=== PATIENT | female | born 1980 | race Two or more races ===

== ENCOUNTER 2018-10-22 | Emergency (ER) | payer MEDICAID, OTHER ==
[~2018-10-22] VITALS: Ht 160 cm; Wt 93.0 kg
[2018-10-22 00:20] VITALS: BP 103/70
[2018-10-22] MEDS ORDERED: PREN-96 PO (00:53)
[2018-10-22] MEDS ORDERED: FOLI1TAB6 PO (00:53)
[2018-10-22] MEDS ORDERED: INSREG3 IV (00:53)
[2018-10-22] MEDS ORDERED: LEVEMIR SC ×2 (00:53)
[2018-10-22] MEDS ORDERED: DOCU-94 PO (00:53)
== END 2018-10-22 02:58 | disposition left against medical advice (07) ==
LOC: ER 00:06 → UNDOADMOB 00:21 → LDRP 00:21 → ER 02:58
DX: R51 Headache (principal); Z53.21 Procedure and treatment not carried out due to patient leaving prior to being seen by health care provider
CPT/HCPCS: 82962

== ENCOUNTER 2018-10-22 00:21 | Observation (INO) | payer MEDICAID, OTHER ==
[~2018-10-22] VITALS: Ht 160 cm; Wt 93.0 kg
[2018-10-22] MEDS ORDERED: LEVEMIR SC ×2 (00:53)
[2018-10-22] MEDS ORDERED: INSREG3 IV (00:53)
[2018-10-22] MEDS ORDERED: DOCU-94 PO (00:53)
[2018-10-22] MEDS ORDERED: FOLI1TAB6 PO (00:53)
[2018-10-22] MEDS ORDERED: PREN-96 PO (00:53)
[2018-10-22] MEDS ORDERED: ACETAMINOPHEN 325 MG TAB PO ONE (01:30)
== END 2018-10-22 03:03 | disposition home or self-care (01) | DRG 566 ==
LOC: LDRP 00:21
PROVIDERS: ADMIT Specialist; ATTEND Specialist
DX: O24.112 Pre-existing type 2 diabetes mellitus, in pregnancy, second trimester (principal); O26.892 Other specified pregnancy related conditions, second trimester; M54.2 Cervicalgia; O09.522 Supervision of elderly multigravida, second trimester; R42 Dizziness and giddiness; R51 Headache; Z3A.25 25 weeks gestation of pregnancy
CPT/HCPCS: 59025; 81002; G0378

== ENCOUNTER 2019-06-16 01:33 | Emergency (ER) | payer MEDICAID ==
[~2019-06-16] VITALS: Ht 160 cm; Wt 90.7 kg
[~2019-06-16 01:33] MED LIST: DOCU-94 PO; FOLI1TAB6 PO; INSREG3 IV; LEVEMIR SC; PREN-96 PO
[2019-06-16 07:14] VITALS: BP 128/81
== END 2019-06-16 07:22 | disposition home or self-care (01) ==
LOC: ER 01:34
DX: J40 Bronchitis, not specified as acute or chronic (principal); E11.9 Type 2 diabetes mellitus without complications; Z90.49 Acquired absence of other specified parts of digestive tract
CPT/HCPCS: 71045

== ENCOUNTER 2020-04-09 14:19 | Emergency (ER) | payer MEDICAID ==
[~2020-04-09] VITALS: Ht 160 cm; Wt 81.2 kg
[2020-04-09 16:51] LABS: Urine Bacteria NONE SEEN /hpf (None Seen); Urine Blood 3+ /uL (Negative); Urine Budding Yeast MODERATE /hpf (None Seen); Urine Specific Gravity 1.035 (1.001-1.035); Urine WBC 14 /hpf (0 - 5)
[2020-04-09] MEDS ORDERED: METOCLOPRAMIDE HCL 5MG/ml INJ 2ml VIAL IV ONE (18:15)
[2020-04-09] MEDS ORDERED: FAMOTIDINE (10MG/ML) 2ML VL IV ONE (18:15)
[2020-04-09] MEDS ORDERED: SODIUM CHLORIDE 0.9% 1,000 ML IVB ONE (18:15)
[2020-04-09 18:49] VITALS: BP 116/70
[2020-04-09 18:53] LABS: Basophils # (auto) 0.1 10 ^3/uL (0-0.2); Basophils % (auto) 0.5 % (0.0-2.0); Eosinophils # (auto) 0.1 10 ^3/uL (0-0.8); Eosinophils % (auto) 0.6 % (0.0-7.0); Hematocrit 41.1 % (36.0-46.0); Hemoglobin 13.9 g/dL (12.2-16.2); Lymphocytes % (auto) 24.8 % (10.0-50.0); Mean Corpuscular Hemoglobin 29.7 pg (28.0-32.0); Mean Corpuscular Hgb Conc. 33.7 g/dL (32.0-36.0); Mean Corpuscular Volume 88.2 fL (80.0-100.0); Monocytes # (auto) 0.9 10 ^3/uL (0-1.3); Monocytes % (auto) 7.4 % (0.0-12.0); Neutrophils # (auto) 8.2 10 ^3/uL (1.6-8.6); Neutrophils % (auto) 66.7 % (37.0-80.0); Nucleated Red Blood Cells % 0.1 %; Platelet Count (auto) 212 10^3/uL (140-450); Red Blood Cells 4.66 10^6/uL (4.0-5.20); White Blood Cell 12.3 10^3/uL (4.4-10.8)
[2020-04-09 19:10] LABS: Albumin 3.1 g/dL (3.4-5.0); Potassium 3.4 mmol/L (3.5-5.1)
[2020-04-09 19:15] LABS: BUN/Creatinine Ratio 16.9; Bilirubin, Total 1.1 mg/dL (0.2-1.0); Total Protein 8.6 g/dL (6.4-8.2)
[2020-04-09] MEDS ORDERED: SODIUM CHLORIDE 0.9% 1,000 ML IV ONE (19:30)
== END 2020-04-09 20:29 | disposition home or self-care (01) ==
LOC: ER 14:19
DX: E11.43 Type 2 diabetes mellitus with diabetic autonomic (poly)neuropathy (principal); E11.65 Type 2 diabetes mellitus with hyperglycemia; K31.84 Gastroparesis; N83.292 Other ovarian cyst, left side; R16.0 Hepatomegaly, not elsewhere classified; R16.1 Splenomegaly, not elsewhere classified; E27.9 Disorder of adrenal gland, unspecified; Z91.018 Allergy to other foods; Z88.6 Allergy status to analgesic agent; Z88.8 Allergy status to other drugs, medicaments and biological substances; Z79.4 Long term (current) use of insulin; Z79.899 Other long term (current) drug therapy; Z90.49 Acquired absence of other specified parts of digestive tract; Z98.890 Other specified postprocedural states
CPT/HCPCS: 36415; 74176; 80053; 81001; 81025; 82962; 83690; 85025; 96361; 96374; 96375; 99284; J2765; J3490

== ENCOUNTER 2020-12-10 07:09 | Emergency (ER) | payer MEDICAID ==
[~2020-12-10] VITALS: Ht 160 cm; Wt 83.9 kg
[2020-12-10 07:46] LABS: Urine Bacteria FEW /hpf (None Seen); Urine Blood 3+ /uL (Negative); Urine Mucus FEW (None Seen); Urine Specific Gravity 1.034 (1.001-1.035); Urine WBC 272 /hpf (0 - 5)
[2020-12-10 07:48] LABS: Basophils # (auto) 0.1 10 ^3/uL (0-0.2); Basophils % (auto) 0.7 % (0.0-2.0); Eosinophils # (auto) 0.1 10 ^3/uL (0-0.8); Hematocrit 44.1 % (36.0-46.0); Hemoglobin 14.9 g/dL (12.2-16.2); Lymphocytes % (auto) 15.9 % (10.0-50.0); Mean Corpuscular Hemoglobin 29.6 pg (28.0-32.0); Mean Corpuscular Hgb Conc. 33.8 g/dL (32.0-36.0); Mean Corpuscular Volume 87.6 fL (80.0-100.0); Monocytes # (auto) 0.4 10 ^3/uL (0-1.3); Monocytes % (auto) 3.3 % (0.0-12.0); Neutrophils # (auto) 9.8 10 ^3/uL (1.6-8.6); Neutrophils % (auto) 79.1 % (37.0-80.0); Red Blood Cells 5.03 10^6/uL (4.0-5.20); Red Cell Distribution Width 13.2 % (11.8-14.3); White Blood Cell 12.4 10^3/uL (4.4-10.8)
[2020-12-10 08:00] LABS: Albumin 3.5 g/dL (3.4-5.0); Calcium 8.9 mg/dL (8.5-10.1); Potassium 3.3 mmol/L (3.5-5.1)
[2020-12-10 08:03] LABS: BUN/Creatinine Ratio 11.4; Bilirubin, Total 0.6 mg/dL (0.2-1.0); Total Protein 7.3 g/dL (6.4-8.2)
[2020-12-10 08:52] VITALS: BP 116/61
== END 2020-12-10 09:26 | disposition home or self-care (01) ==
LOC: ER 07:09
DX: N83.202 Unspecified ovarian cyst, left side (principal); N39.0 Urinary tract infection, site not specified; E11.9 Type 2 diabetes mellitus without complications; Z90.49 Acquired absence of other specified parts of digestive tract; Z79.4 Long term (current) use of insulin; Z79.899 Other long term (current) drug therapy; Z88.8 Allergy status to other drugs, medicaments and biological substances; Z91.018 Allergy to other foods
CPT/HCPCS: 36415; 74176; 80053; 81001; 82150; 85025

== ENCOUNTER 2025-02-03 12:19 | Inpatient (IN) | payer MEDICAID ==
[~2025-02-03] VITALS: Ht 160 cm; Wt 83.1 kg
[~2025-02-03 12:19] MED LIST changes: +FOLI-119 PO; -FOLI1TAB6 PO
--- NOTE | 2025-02-03 13:06 | ED.PDOC ---
History of Present Illness HPI Comments 44 y/o obese F presents with c/c of hyperglycemia and 3x day history of nonradiating, midsternal chest pain. Significant history for DM type I, HLD, and cholecystectomy. Patient was referred to the ED by her PCP after seeing her, yesterday, for chest pain and found with unexplained elevated blood glucose lev els. Pain is a 2/10 in severity and radiates to her back. Associated bilateral arm fatigue, nausea, polyuria, and polydipsia. No endorsed recent pertinent events or history, such as lifestyle or medication changes. Denies any vomiting, shortness of breath, polyphagia, diaphoresis, or further associated symptoms. Chief Complaint: Chest Pain Time Seen by MD: 12:40 Primary Care Provider: NONE Reviewed Notes: Nurses Notes, Medications, Allergies Allergies: Coded Allergies: Beef (Bovine) Protein (Verified Allergy, Unknown, 10/22/18) Ibuprofen (Verified Allergy, Unknown, 10/20/15) Insulin Glargine (Verified Allergy, Unknown, 10/22/18) Insulin Isophane (Verified Allergy, Unknown, 10/22/18) Ketorolac Tromethamine (Verified Allergy, Unknown, 10/20/15) Metformin (Verified Allergy, Unknown, 10/22/18) NSAIDs (Verified Allergy, Unknown, 10/20/15) Home Meds Reported Medications Docusate Sodium (Colace) 100 Mg Cap, 1 CAP PO BID, #30 CAP 10/22/18 Folic Acid (Folic Acid) 1 Mg Tab, 1 MG PO DAILY for 30 Days, MG 10/22/18 Vit W/ Ferrous Fumara ( One Daily) Daily Tab, 1 TAB PO DAILY, #90 TAB 3 Refills 10/22/18 Insulin Regular (Human) (Humulin R) 100 Unit/Ml Inj, 8 UNIT IV, INJ 10/22/18 Insulin Detemir (Levemir) Inj, 26 SC HS, INJ 10/22/18 Insulin Detemir (Levemir) Inj, 20 SC AC, INJ 10/22/18 Information Source: Patient Mode of Arrival: Ambulatory Severity: Moderate Timing: Days Duration: Since onset Prehospital treatment: Other (see HPI) Past Medical History PAST MEDICAL HISTORY: DM (type I), High Lipids Surgical History: Cholecystectomy, INDUSTRIAL MAINTENANCE MECHANIC History: Ectopic (s/p surgical intervention ) Family History Family History: Family hx of DM (type I) Social History Smoker: Non-Smoker Alcohol: Denies ETOH Use Drugs: Denies Drug Use Lives In: Home Constitutional: denies: chills, diaphoresis, fatigue, fever, malaise, sweats, weakness, others EENTM: denies: blurred vision, double vision, ear bleeding, ear discharge, ear drainage, ear pain, ear ringing, eye pain, eye redness, hearing loss, mouth pa in, mouth swelling, nasal discharge, nose bleeding, nose congestion, nose pain, photophobia, tearing, throat pain, throat swelling, voice changes, others Respiratory: denies: cough, hemoptysis, orthopnea, SOB at rest, shortness of breath, SOB with excertion, stridor, wheezing, others Cardiovascular: reports: chest pain; denies: dizzy spells, diaphoresis, Dyspnea on exertion, edema, irregular heart beat, left arm pain, lightheadedness, palpitations, PND, syncope, others Gastrointestinal: reports: nausea; denies: abdomen distended, abdominal pain, blood streaked bowels, constipated, diarrhea, dysphagia, difficulty swallowing, hematemesis, melena, poor appetite, poor fluid intake, rectal bleeding, rectal pain, vomiting, others Genitourinary: denies: abnormal vagina bleeding, burning, dyspareunia, dysuria, flank pain, frequency, hematuria, incontinence, pain, , vagina discharge , urgency, others Neurological: denies: dizziness, fainting, headache, left sided numbness, left sided weakness, numbness, paresthesia, pre-existing deficit, right sided numbness, right sided weakness, seizure, speech problems, tingling, tremors, weakness, others Musculoskeletal: reports: back pain; denies: gout, joint pain, joint swelling, muscle pain, muscle stiffness, neck pain, others Integumetry: denies: bruises, change in color, change in hair/nails, dryness, laceration, lesions, lumps, rash, wounds, others Allergic/Immunocompromised: denies: Difficulty Healing, Frequent Infections, Hives, Itching, others Hematologic/Lymphatic: denies: anemia, blood clots, easy bleeding, easy bruising, swollen glands, others Endocrine: reports: excessive thirst, excessive urination, others (hyperglycemia ); denies: excessive hunger, excessive sweating, flushing, intolerance to cold, intolerance to heat, unexplained weight gain, unexplained weight loss Psychiatric: denies: anxiety, bipolar disorder, depression, hopeless, panic disorder, schizophrenia, sleepless, suicidal, others All Other Systems: Reviewed and Negative Physical Exam General Appearance: Moderate Distress HEENT: Normal ENT Inspection, Pharynx Normal, TMs Normal Neck: Full Range of Motion, Non-Tender, Normal, Normal Inspection Respiratory: Chest Non-Tender, Lungs Clear, No Accessory Muscle Use, No Respiratory Distress, Normal Breath Sounds Cardiovascular: No Edema, No JVD, No Murmur, No Gallop, Normal Peripheral Pulses, Regular Rate/Rhythm Breast Exam: Deferred Gastrointestinal: No Organomegaly, Non Tender, No Pulsatile Mass, Normal Bowel Sounds, Soft Genitalia: Deferred Pelvic: Deferred Rectal: Deferred Extremities: No calf tenderness, Normal capillary refill, Normal inspection, Normal range of motion, Non-tender, No pedal edema Musculoskeletal : Apperance: Normal Neurologic: Alert, data support specialist II-XII nml as Tested, No Motor Deficits, Normal Affect, Normal Mood, No Sensory Deficits Cerebellar Function: Normal Reflexes: Normal Skin: Dry, Normal Color, Warm Lymphatic: No Adenopathy Was a procedure done? Was a procedure done?: No EKG EKG : Pulse Rate (adult): 85 [place]: Normal Cardiac Rhythm: NSR Block: None Hypertrophy: None ST: Normal Differential Dx Considerations may include: hyperglycemia, DKA, OR, PE, ACS, CAD, URI, PNA, angina, anxiety, gastritis, gastroenteritis, GERD, among others X-Ray, Labs, Meds, VS Vital Signs Date Time Temp Pulse Resp B/P (MAP) Pulse Ox O2 Delivery O2 Flow Rate FiO2 02/03/25 13:31 92 02/03/25 13:31 98.2 92 18 125/85 (98) 98 98.2 02/03/25 13:23 89 02/03/25 13:06 85 02/03/25 12:24 98.1 96 16 159/105 98 98.1 Lab Test 02/03/25 12:57 02/03/25 12:40 Range/Units White Blood Count 9.8 4.4-10.8 10^3/uL Red Blood Count 5.19 4.0-5.20 10^6/uL Hemoglobin 15.3 12.2-16.2 g/dL Hematocrit 45.3 36.0-46.0 % Mean Corpuscular Volume 87.2 80.0-100.0 fL Mean Corpuscular Hemoglobin 29.5 28.0-32.0 pg Mean Corpuscular Hemoglobin Concent 33.9 32.0-36.0 g/dL Red Cell Distribution Width 13.1 11.8-14.3 % Platelet Count 307 140-450 10^3/uL Mean Platelet Volume 8.1 6.9-10.8 fL Neutrophils (%) (Auto) 62.9 37.0-80.0 % Lymphocytes (%) (Auto) 30.6 10.0-50.0 % Monocytes (%) (Auto) 3.3 0.0-12.0 % Eosinophils (%) (Auto) 2.4 0.0-7.0 % Basophils (%) (Auto) 0.8 0.0-2.0 % Neutrophils # (Auto) 6.2 1.6-8.6 10 ^3/uL Lymphocytes # (Auto) 3.0 0.4-5.4 10 ^3/uL Monocytes # (Auto) 0.3 0-1.3 10 ^3/uL Eosinophils # (Auto) 0.2 0-0.8 10 ^3/uL Basophils # (Auto) 0.1 0-0.2 10 ^3/uL Nucleated Red Blood Cells 0.1 % Sodium Level 137 136-145 mmol/L Potassium Level 4.0 3.5-5.1 mmol/L Chloride Level 101 98-107 mmol/L Carbon Dioxide Level 27 20-31 mmol/L Anion Gap 9 5-15 Blood Urea Nitrogen 10 9-23 mg/dL Creatinine 0.77 0.550-1.02 mg/dL Glomerular Filtration Rate Calc 97 >90 mL/min BUN/Creatinine Ratio 13.0 10.0-20.0 Serum Glucose 369 H 74-106 mg/dL Calcium Level 9.7 8.7-10.4 mg/dL Troponin I High Sensitivity < 3 L </=34 ng/L Beta-Hydroxybutyric Acid Pending POC Glucose 387 H 70-106 mg/dl Current Medications Medications (Trade) Dose Ordered Sig/Shirley Route Start Time Stop Time Status Last Admin Sodium Chloride 1,000 ml @ 1,000 mls/hr Q1H ONCE IV 02/03/25 12:45 02/03/25 13:44 DC 02/03/25 13:30 PROCEDURE(s): CXR1 - CHEST XRAY 1 VIEW IMPRESSION: No acute cardiopulmonary disease. The patient's CBC and chemistry panel are within normal limits The troponin level is negative The patient was given a 1 L bolus of normal saline The patient's glucose is 369 The patient was given insulin The patient will be admitted with a diagnosis of acute chest pain and uncontrolled diabetes Images Reviewed?: Images reviewed and evaluated by me Time of 1ST Reevaluation: 13:10 Reevaluation 1ST: Unchanged Patient Education/Counseling: Diagnosis, Treatment, Prognosis Family Education/Counseling: No Family Present SEPSIS Sepsis Screen Date sepsis recognized/suspect: Feb 03, 2025 Time Sepsis recognized/suspect: 1226 Recent Procedure: No On Antibiotic Therapy: No Respiratory Rate >20: No Heart Rate >90: Yes Temp<36 C (96.8 F) or >38.3 C: No SBP <90 or MAP <65 mmHG: No New Acute Mental Status Change: No Is the patient on CPAP, BIPAP,: No Physician Orders Electrocardigram (02/03/25 12:29) Chest Xray 1 View (02/03/25 12:37) Test, Urine (02/03/25 12:29) Troponin-I Hs (02/03/25 13:29) Troponin-I Hs (02/03/25 15:29) Electrocardigram (02/03/25 13:29) Electrocardigram (02/03/25 15:29) Urinalysis (02/03/25 12:38) Heplock Iv (02/03/25 12:38) Traffic Law Attorney (02/03/25 12:38) Blood Pressure (02/03/25 12:38) Pulse Oximetry (02/03/25 12:38) Acetone (02/03/25 12:38) Vital Signs Date Time Temp Pulse Resp B/P (MAP) Pulse Ox O2 Delivery O2 Flow Rate FiO2 02/03/25 13:31 92 02/03/25 13:31 98.2 92 18 125/85 (98) 98 98.2 02/03/25 13:23 89 02/03/25 13:06 85 02/03/25 12:24 98.1 96 16 159/105 98 98.1 Laboratory Tests Test 02/03/25 12:57 White Blood Count 9.8 10^3/uL (4.4-10.8) Medications Medications Dose Ordered Sig/Shirley Route Start Time Stop Time Status Last Admin Dose Admin Sodium Chloride 1,000 ml @ 1,000 mls/hr Q1H ONCE IV 02/03/25 12:45 02/03/25 13:44 DC 02/03/25 13:30 Departure 1 Departure Time of Disposition: 13:47 Impression: Primary Impression: Uncontrolled diabetes mellitus Qualified Codes: E13.65 - Other specified diabetes mellitus with hyperglycemia Additional Impression: Acute chest pain Disposition: HOME / SELF CARE / HOMELESS Condition: Fair Discharged With: Self Critical Care Note Critical Care Time?: No Stability Stability form required: Yes Unstable for transfer: Telemetry monitoring (Telemetry monitoring required), ED Physician Assesment (Clinical assesment) Heart Score Heart Score: Heart Score Response (Comments) Value History Moderate Suspicious 1 EKG Normal 0 Age 45-64 1 Risk Factors 1 or 2 risk factors 1 Troponin Normal limit 0 Total 3 I personally scribed for GREG HODGSON MD ([email or web address]) on 02/03/25 at 13:06. Electronically submitted by Rob Guy [email or web address]). I personally scribed for GREG HODGSON MD ([email or web address]) on 02/03/25 at 13:36. Electronically submitted by Rob Guy [email or web address]). GREG HODGSON MD Feb 03, 2025 13:06
--- NOTE | 2025-02-03 13:07 | DVH ---
EXAM: XY CHEST XRAY 1 VIEW Indication: CHEST PAIN Technique: Single frontal view of the chest was obtained Comparison: None FINDINGS: Lines and Tubes: None Lungs: No focal consolidation. Pleura: No effusion. No pneumothorax. Cardiomediastinal contours: Unremarkable Bones: No acute osseous abnormality. IMPRESSION: No acute cardiopulmonary disease.
[2025-02-03 13:22] LABS: Hematocrit 45.3 % (36.0-46.0); Hemoglobin 15.3 g/dL (12.2-16.2); Mean Corpuscular Hemoglobin 29.5 pg (28.0-32.0); Mean Corpuscular Volume 87.2 fL (80.0-100.0); Nucleated Red Blood Cells % 0.1 %
[2025-02-03 13:27] LABS: Chloride 101 mmol/L (98-107); Potassium 4.0 mmol/L (3.5-5.1); Sodium 137 mmol/L (136-145)
[2025-02-03 13:28] LABS: Anion Gap 9 (5-15); Carbon Dioxide 27 mmol/L (20-31)
[2025-02-03 13:29] LABS: Calcium 9.7 mg/dL (8.7-10.4)
[2025-02-03] MEDS: SODIUM CHLORIDE 0.9% 1,000 ML IV ONE (13:30)
[2025-02-03 13:34] LABS: BUN/Creatinine Ratio 13.0 (10.0-20.0); Blood Urea Nitrogen 10 mg/dL (9-23)
[2025-02-03 13:37] LABS: Glucose 369 mg/dL (74-106)
--- NOTE | 2025-02-03 13:52 | ECG ---
[facility] Test Date: 2025-02-03 Test Time: 12:38:07 Pat Name: PANKAJ YARBROUGH Department: ED Room: Gender: F Manager Media Relations: JENNIFER : 1980 Requested By: EMILY YOUNG Order Number: [id number] Reading MD: Jeff Rhodes Measurements Intervals [place] Rate: 85 P: 53 NM: 133 QRS: -1 QRSD: 88 T: 23 QT: 387 QTc: 461 Interpretive Statements Sinus rhythm Electronically Signed On 02-03-2025 15:05:23 PST by Jeff Rhodes Please click the below link to view image of tracing.
[2025-02-03] MEDS: InsuLIN REG 1unit/0.01ml Soln (100units/ml) IV ONE (14:02)
[2025-02-03 14:27] LABS: Urine Budding Yeast MANY /hpf (None Seen); Urine Protein, UAD Negative (Negative)
[2025-02-03] MEDS ORDERED: MORPHINE SULFATE 4 MG/ML SYR/VIAL IV PRN (15:15)
[2025-02-03] MEDS ORDERED: ONDANSETRON HCL 4 MG/2 ML VIAL IV PRN (15:15)
[2025-02-03] MEDS ORDERED: DEXTROSE (50%) 50ML SYRG IV PRN (15:15)
[2025-02-03] MEDS ORDERED: NITROGLYCERIN 0.4 MG SL TAB SL PRN ×2 (15:15)
--- NOTE | 2025-02-03 15:15 | DVHHP2 ---
History of Present Illness Reason for Visit: Chest pain History of Present Illness Amy Leger is a 44-year-old female with past medical history of type cystectomy, , ectopic , 1 diabetes, hyperlipidemia, and cholecystectomy who presents to the ED with chest pain x 3 days, reports the pain to 1/10 discomfort and intermittent in nature. She reports that it radiates to her back. Patient reports that her PCP advised her to come to the ER due to high blood glucose levels. Patient reports that she no longer has a continuous glucose monitor or insulin pump for the last 3 months as she had insurance issues. She does report however that the insurance just activated and waiting for a follow up with her security operations manager. She also reports that she has no insulin either for the last 3 months. Patient denies any recent trauma or injury, recent sick contacts, recent travels, recent ingestion of spoiled food, fever, chills, lightheadedness, weakness, dizziness, nausea, vomiting, diarrhea, or urinary symptoms. Cardiovascular: hyperipidemia Endocrine: Diabetes Past Surgical History: Cholecystectomy, Other (Cystectomy) Domestic Violence: Neg Review of Systems Cardiovascular: Chest Pain Allergies: Coded Allergies: Beef (Bovine) Protein (Verified Allergy, Unknown, 10/22/18) Ibuprofen (Verified Allergy, Unknown, 10/20/15) Insulin Glargine (Verified Allergy, Unknown, 10/22/18) Insulin Isophane (Verified Allergy, Unknown, 10/22/18) Ketorolac Tromethamine (Verified Allergy, Unknown, 10/20/15) Metformin (Verified Allergy, Unknown, 10/22/18) NSAIDs (Verified Allergy, Unknown, 10/20/15) Exam Vital Signs Vital Signs Date Time Temp Pulse Resp B/P (MAP) Pulse Ox O2 Delivery O2 Flow Rate FiO2 02/03/25 13:31 92 02/03/25 13:31 98.2 18 125/85 (98) 98 98.2 General Appearance: Alert, Oriented X3, Cooperative, No acute distress HEENT: Atraumatic, PERRLA, EOMI, Mucous membr. moist/pink Respiratory: Clear to auscultation, Normal air movement Cardiovascular: Regular rate, Normal S1, Normal S2, No murmurs Abdominal: Normal bowel sounds, Soft Extremities: No cyanosis, No edema, Normal pulses Skin: No significant lesion Neuro: Normal gait, Normal speech, Strength at 5/5 X4 ext, Normal tone, Sensati on intact Psych/Mental Status: Mental status NL, Mood NL Labs/Xrays Labs Test 02/03/25 14:18 02/03/25 13:55 02/03/25 13:54 02/03/25 13:53 Range/Units POC Glucose 320 H 70-106 mg/dl Urine Test Negative Negative Urine Color Light-yellow Yellow Urine Clarity Clear Clear Urine pH 5.5 5.0-9.0 Urine Specific [place] 1.027 1.001-1.035 Urine Protein Negative Negative Urine Ketones Negative Negative Urine Blood Negative Negative /uL Urine Nitrite Negative Negative Urine Bilirubin Negative Negative Urine Urobilinogen Normal Negative mg/dL Urine Leukocyte Esterase Negative Negative /uL Urine RBC 4 0 - 4 /hpf Urine Microscopic WBC 2 0-5 /HPF Urine Squamous Epithelial Cells Few <5 /hpf Urine Bacteria Few H None Seen /hpf Urine Yeast (Budding) Many None Seen /hpf Urine Glucose 4+ H Normal mg/dL Test 02/03/25 12:57 Range/Units White Blood Count 9.8 4.4-10.8 10^3/uL Red Blood Count 5.19 4.0-5.20 10^6/uL Hemoglobin 15.3 12.2-16.2 g/dL Hematocrit 45.3 36.0-46.0 % Mean Corpuscular Volume 87.2 80.0-100.0 fL Mean Corpuscular Hemoglobin 29.5 28.0-32.0 pg Mean Corpuscular Hemoglobin Concent 33.9 32.0-36.0 g/dL Red Cell Distribution Width 13.1 11.8-14.3 % Platelet Count 307 140-450 10^3/uL Mean Platelet Volume 8.1 6.9-10.8 fL Neutrophils (%) (Auto) 62.9 37.0-80.0 % Lymphocytes (%) (Auto) 30.6 10.0-50.0 % Monocytes (%) (Auto) 3.3 0.0-12.0 % Eosinophils (%) (Auto) 2.4 0.0-7.0 % Basophils (%) (Auto) 0.8 0.0-2.0 % Neutrophils # (Auto) 6.2 1.6-8.6 10 ^3/uL Lymphocytes # (Auto) 3.0 0.4-5.4 10 ^3/uL Monocytes # (Auto) 0.3 0-1.3 10 ^3/uL Eosinophils # (Auto) 0.2 0-0.8 10 ^3/uL Basophils # (Auto) 0.1 0-0.2 10 ^3/uL Nucleated Red Blood Cells 0.1 % Sodium Level 137 136-145 mmol/L Potassium Level 4.0 3.5-5.1 mmol/L Chloride Level 101 98-107 mmol/L Carbon Dioxide Level 27 20-31 mmol/L Anion Gap 9 5-15 Blood Urea Nitrogen 10 9-23 mg/dL Creatinine 0.77 0.550-1.02 mg/dL Glomerular Filtration Rate Calc 97 >90 mL/min BUN/Creatinine Ratio 13.0 10.0-20.0 Serum Glucose 369 H 74-106 mg/dL Calcium Level 9.7 8.7-10.4 mg/dL Beta-Hydroxybutyric Acid 0.148 < 0.4 mmol/L EXAM: XY CHEST XRAY 1 VIEW Indication: CHEST PAIN Technique: Single frontal view of the chest was obtained Comparison: None FINDINGS: Lines and Tubes: None Lungs: No focal consolidation. Pleura: No effusion. No pneumothorax. Cardiomediastinal contours: Unremarkable Bones: No acute osseous abnormality. IMPRESSION: No acute cardiopulmonary disease. SEPSIS Sepsis Screen Date sepsis recognized/suspect: Feb 03, 2025 Time Sepsis recognized/suspect: 7 Recent Procedure: No On Antibiotic Therapy: No Respiratory Rate >20: No Heart Rate >90: Yes Temp<36 C (96.8 F) or >38.3 C: No SBP <90 or MAP <65 mmHG: No New Acute Mental Status Change: No Is the patient on CPAP, BIPAP,: No Physician Orders Chest Xray 1 View (02/03/25 12:37) Troponin-I Hs (02/03/25 13:29) Troponin-I Hs (02/03/25 15:29) Electrocardigram (02/03/25 13:29) Electrocardigram (02/03/25 15:29) Heplock Iv (02/03/25 12:38) Cashier Gambling (02/03/25 12:38) Blood Pressure (02/03/25 12:38) Pulse Oximetry (02/03/25 12:38) Vital Signs Date Time Temp Pulse Resp B/P (MAP) Pulse Ox O2 Delivery O2 Flow Rate FiO2 02/03/25 13:31 92 02/03/25 13:31 98.2 92 18 125/85 (98) 98 98.2 02/03/25 13:23 89 02/03/25 13:06 85 02/03/25 12:24 98.1 96 16 159/105 98 98.1 Laboratory Tests Test 02/03/25 12:57 White Blood Count 9.8 10^3/uL (4.4-10.8) Medications Medications Dose Ordered Sig/Shirley Route Start Time Stop Time Status Last Admin Dose Admin Insulin Human Regular 5 units ONCE ONCE IV 02/03/25 12:45 02/03/25 12:46 DC 02/03/25 14:02 5 UNITS Sodium Chloride 1,000 ml @ 1,000 mls/hr Q1H ONCE IV 02/03/25 12:45 02/03/25 13:44 DC 02/03/25 13:30 1,000 MLS/HR Assessment/Plan Assessment/Plan Assessment Chest pain rule out ACS Hyperglycemia, history of type 1 diabetes Obesity History of hyperlipidemia History of cholecystectomy History of cystectomy History of Medication nonadherence Plan Admit to telemetry Antiemetics Pain management Aspirin + statin Echo ordered Hemoglobin A1c ISS and Accu-Cheks TSH Lipid panel Free T4 UA UDS Insulin given in ED NS 1 L given in ED EKG Troponin noted HCG noted Chest x-ray DD CK Diet Home medications reconciled DVT prophylaxis-SCDs PUD prophylaxis-not indicated no history of GERD or GI bleed Discussed plan of care with patient and nurse Diabetic education Counseled patient on lifestyle modifications, diet, and exercise [id number] Preventive counseling healthy eating habits, physical activity, and regu lar checkups Plan discussed with: Patient Date of Service: Feb 03, 2025 Billing Provider: SETH SOLORIO Common Visit Codes: [id number] INP/OBS CARE (HIGH) Secondary Visit Codes: [id number] COUNSELING IND SETH SOLORIO Feb 03, 2025 15:15
[2025-02-03 15:55] LABS: Amphetamine Screen, Urine Neg (NEGATIVE); Barbiturate Scree,Urine Neg (NEGATIVE); Benzodiazephine Screen, Urine Neg (NEGATIVE); Cannabinoid Screen, Urine Neg (NEGATIVE); Cocaine Screen, Urine Neg (NEGATIVE); Opiate Scree,Urine Neg (NEGATIVE); Phencyclidine Screen, Urine Neg (NEGATIVE)
[2025-02-03] MEDS: ACCU-CHEK COMFORT CURVE STRIP VI SCH (17:46)
[2025-02-03] MEDS: InsuLIN REG 1unit/0.01ml Soln (100units/ml) SC SCH (17:52)
[2025-02-03 18:17] VITALS: BP 119/63; PULSE 71; TEMP 98.5; O2SAT 98
[2025-02-03] MEDS ORDERED: INSLISPI SC (18:56)
[2025-02-03 20:00] VITALS: PULSE 82
[2025-02-03 21:00] VITALS: BP 119/83; PULSE 81; RESP 21; TEMP 98.2; O2SAT 97
[2025-02-03] MEDS: ATORVASTATIN 20 MG TAB PO SCH (22:49)
[2025-02-04] VITALS (9 sets, daily range): BP systolic 108–136; BP diastolic 64–86; PULSE 61–93; RESP 16–18; TEMP 97.2–98.7; O2SAT 97–100
[2025-02-04 05:59] LABS: Hematocrit 41.1 % (36.0-46.0); Hemoglobin 14.1 g/dL (12.2-16.2); Mean Corpuscular Hemoglobin 29.9 pg (28.0-32.0); Mean Corpuscular Volume 86.9 fL (80.0-100.0); Nucleated Red Blood Cells % 0.2 %
[2025-02-04] MEDS: InsuLIN REG 1unit/0.01ml Soln (100units/ml) ONE (06:03)
[2025-02-04 06:18] LABS: Chloride 105 mmol/L (98-107); Potassium 4.0 mmol/L (3.5-5.1); Sodium 139 mmol/L (136-145)
[2025-02-04 06:19] LABS: Anion Gap 9 (5-15); Calcium 9.1 mg/dL (8.7-10.4); Carbon Dioxide 25 mmol/L (20-31)
--- NOTE | 2025-02-04 06:19 | ECG ---
[facility] Test Date: 2025-02-04 Test Time: 06:17:16 Pat Name: PANKAJ YARBROUGH Department: Respiratoy Room: [facility] Gender: F Animal Control Supervisor: KAMALA : 1980 Requested By: SETH SOLORIO Order Number: [id number] Reading MD: Jeff Rhodes Measurements Intervals [place] Rate: 74 P: 53 AR: 142 QRS: 8 QRSD: 96 T: 27 QT: 414 QTc: 460 Interpretive Statements Sinus rhythm RSR' in V1 or V2, right VCD or RVH Electronically Signed On 02-04-2025 10:36:07 PST by Jeff Rhodes Please click the below link to view image of tracing.
[2025-02-04 06:24] LABS: BUN/Creatinine Ratio 15.2 (10.0-20.0); Blood Urea Nitrogen 10 mg/dL (9-23)
[2025-02-04 06:25] LABS: Glucose 238 mg/dL (74-106); Magnesium 1.7 mg/dL (1.6-2.6); Triglycerides 261 mg/dL (< 150)
[2025-02-04 06:26] LABS: HDL Cholesterol 42 mg/dL (40-59)
[2025-02-04 06:35] LABS: Cholesterol 212 mg/dL (< 200)
[2025-02-04] MEDS: FOLIC ACID 1 MG TAB PO SCH (10:00)
--- NOTE | 2025-02-04 10:11 | ECG ---
[facility] Test Date: 2025-02-03 Test Time: 13:23:13 Pat Name: PANKAJ YARBROUGH Department: ED Room: [facility] A Gender: F Craps Dealer: BILL : 1980 Requested By: EMILY YOUNG Order Number: [id number] Reading MD: Jeff Rhodes Measurements Intervals [place] Rate: 89 P: 52 [place]: 137 QRS: 1 QRSD: 85 T: 10 QT: 375 QTc: 457 Interpretive Statements Sinus rhythm Electronically Signed On 02-04-2025 10:37:25 PST by Jeff Rhodes Please click the below link to view image of tracing.
[2025-02-04] MEDS: ACETAMINOPHEN 325 MG TAB PO PRN (10:37)
[2025-02-04] MEDS: MORPHINE SULFATE INJ 2 MG/ml SYRG IV PRN (16:03)
--- NOTE | 2025-02-04 16:14 | DVHPN2 ---
Subjective Patient is here for high blood sugars. Patient does have known history of diabetes mellitus type 1 currently off Changes from previous H/P or p: No Changes Cardiovascular: Chest Pain Objective Vitals Vital Signs Date Time Temp Pulse Resp B/P (MAP) Pulse Ox O2 Delivery O2 Flow Rate FiO2 02/04/25 16:03 85 16 136/86 02/04/25 12:54 98.8 02/04/25 12:43 97 02/04/25 07:20 Room Air* 0 21 Intake/Output Intake and Output 02/04/25 07:00 Intake Total 0 ml Balance 0 ml Intake Oral 0 ml # Voids 1 # Bowel Movements 1 Exam HEENT pupils are reactive Neck is supple CV is S1-S2 regular rate and rhythm Respiratory are clear GI positive bowel sound Extremity no edema DIRECTOR OF LABOR AND DELIVERY no motor deficit Medications Current Medications Medications Dose Ordered Sig/Shirley Route Start Time Stop Time Status Last Admin Dose Admin Atorvastatin Calcium 40 mg HS PO 02/03/25 22:00 02/03/25 22:49 40 MG Diagnostic Test (Pha) 1 strip ACHS 02/03/25 17:00 02/04/25 11:30 1 STRIP Insulin Human Regular ACHS SC 02/03/25 17:00 02/04/25 11:30 10 UNITS Dextrose 50 ml UD PRN IV 02/03/25 15:15 Acetaminophen 650 mg Q6HP PRN PO 02/03/25 15:15 02/04/25 10:37 650 MG Ondansetron HCl 4 mg Q4HP PRN IV 02/03/25 15:15 Nitroglycerin 0.4 mg Q5MINP PRN SL 02/03/25 15:15 Morphine Sulfate 2 mg Q30M PRN IV 02/03/25 15:15 02/04/25 16:03 2 MG Folic Acid 1 mg DAILY PO 02/04/25 10:00 02/04/25 10:00 1 MG Acetaminophen/ Hydrocodone Bitart 1 tab Q4HP PRN PO 02/04/25 14:15 Laboratory Results Laboratory Tests 02/04/25 05:08 Chemistry Test 02/04/25 05:08 Calcium Level 9.1 mg/dL (8.7-10.4) Magnesium Level 1.7 mg/dL (1.6-2.6) Lipid panel Test 02/04/25 05:08 Cholesterol Level 212 mg/dL (< 200) H HDL Cholesterol 42 mg/dL (40-59) Triglycerides Level 261 mg/dL (< 150) H Urinalysis Test 02/03/25 13:53 02/03/25 13:54 Urine Color Light-yellow (Yellow) Urine Clarity Clear (Clear) Urine pH 5.5 (5.0-9.0) Urine Specific [place] 1.027 (1.001-1.035) Urine Protein Negative (Negative) Urine Ketones Negative (Negative) Urine Blood Negative /uL (Negative) Urine Nitrite Negative (Negative) Urine Bilirubin Negative (Negative) Urine Urobilinogen Normal mg/dL (Negative) Urine Leukocyte Esterase Negative /uL (Negative) Urine RBC 4 /hpf (0 - 4) Urine Microscopic WBC 2 /HPF (0-5) Urine Squamous Epithelial Cells Few /hpf (<5) Urine Bacteria Few /hpf (None Seen) H Urine Yeast (Budding) Many /hpf (None Seen) Urine Glucose 4+ mg/dL (Normal) H Urine Test Negative (Negative) Assessment/Plan Assessment/Plan 44-year-old female with a known history of type 1 diabetes is here for high blood sugar 1. Hyperglycemia in the setting of type 1 diabetes mellitus insulin-dependent 2. Dyslipidemia 3. Type 1 diabetes mellitus 4. Noncompliance/nonadherence to insulin because of insurance issues -continue intravenous Lantus, statin, sr. social media & mobile manager consultation. Plan discussed with: Patient My Orders Orders - ALONSO BOSTON MD Procedure Category Date Status Time Hydrocodone-Acet PHA 02/04/25 In Process 10/325mg Tab ([place] 14:15 Date of Service: Feb 04, 2025 Billing Provider: ALONSO BOSTON MD Common Visit Codes: [id number] INP/OBS CARE(HIGH) ALONSO BOSTON MD Feb 04, 2025 16:14
--- NOTE | 2025-02-04 16:47 | DVHSR ---
APPROVED REPORT EXAM: Two-dimensional and M-mode echocardiogram with Doppler and color Doppler. Blood Pressure: 109/75 mmHg INDICATION Chest Pain RISK FACTORS Height: 63, Weight: 183 DIMENSIONS LVDd 4.1 (3.8-5.7cm) LA (2D) 3.3 (1.9-4.0cm) Aortic Root 3.1 (2.0-3.7cm) LVDs 2.8 (2.5-4.0cm) LA (MM) (1.9-4.0cm) Aortic Cusp Exc 2.0 (1.5-2.0cm) EF (%) 60.0 (55-70%) Rt. Atrium 2.7 (1.9-4.0cm) Asc. Aorta cm IVSd 0.7 (0.7-1.1cm) RV (D) 4.0 (1.8-2.4cm) PWd 0.9 (0.7-1.1cm) Mitral Valve Mitral Mitral Stenosis E wave 0.77m/s MV Mean GR. mmHg A wave 0.63m/s MV Peak GR. mmHg E/A ratio 1.2 2D MVA cm2 DECEL Time 188ms PRESS 1/2 Time ms Aortic Valve Aortic Valve Aortic Stenosis V1 0.90m/s AO Mean GR. 6mmHg V2 1.44m/s AO Peak GR. 8mmHg LVOT Diameter 2.0 (1.8-2.4cm) Doppler COLETTE 1.96cm2 Pulmonic Valve V2 0.79m/s Conclusion Technically good study. Sinus rhythm. Left atrial enlargement. RV enlargement. Valves are normal. EF of 60% with normal RV function. Dopplers unremarkable. No pericardial effusion masses or vegetations.
[2025-02-04] MEDS: HYDROcodone-ACET 10/325MG TAB ONE (22:18)
[2025-02-04] MEDS: HYDROcodone-ACET 10/325MG TAB PO PRN (22:26)
[2025-02-05] VITALS (7 sets, daily range): BP systolic 101–126; BP diastolic 69–89; PULSE 70–92; RESP 16–20; TEMP 97.4–98.9; O2SAT 96–99
--- NOTE | 2025-02-05 15:57 | DVHPN2 ---
Subjective Patient is here for high blood sugars. Patient does have known history of diabetes mellitus type 1 currently off of insulin. Denies any chest pain shortness of breaths. 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 Medications Current Medications Medications Dose Ordered Sig/Shirley Route Start Time Stop Time Status Last Admin Dose Admin Atorvastatin Calcium 40 mg HS PO 02/03/25 22:00 02/04/25 22:09 40 MG Diagnostic Test (Pha) 1 strip ACHS 02/03/25 17:00 02/05/25 10:30 1 STRIP Insulin Human Regular ACHS SC 02/03/25 17:00 02/05/25 10:31 6 UNITS Dextrose 50 ml UD PRN IV 02/03/25 15:15 Acetaminophen 650 mg Q6HP PRN PO 02/03/25 15:15 02/04/25 18:13 650 MG Ondansetron HCl 4 mg Q4HP PRN IV 02/03/25 15:15 Nitroglycerin 0.4 mg Q5MINP PRN SL 02/03/25 15:15 Morphine Sulfate 2 mg Q30M PRN IV 02/03/25 15:15 02/04/25 16:03 2 MG Folic Acid 1 mg DAILY PO 02/04/25 10:00 02/05/25 10:00 1 MG Acetaminophen/ Hydrocodone Bitart 1 tab Q4HP PRN PO 02/04/25 14:15 02/04/25 22:26 1 TAB Laboratory Results Laboratory Tests 02/04/25 05:08 Urinalysis Test 02/03/25 13:53 02/03/25 13:54 Urine Color Light-yellow (Yellow) Urine Clarity Clear (Clear) Urine pH 5.5 (5.0-9.0) Urine Specific [place] 1.027 (1.001-1.035) Urine Protein Negative (Negative) Urine Ketones Negative (Negative) Urine Blood Negative /uL (Negative) Urine Nitrite Negative (Negative) Urine Bilirubin Negative (Negative) Urine Urobilinogen Normal mg/dL (Negative) Urine Leukocyte Esterase Negative /uL (Negative) Urine RBC 4 /hpf (0 - 4) Urine Microscopic WBC 2 /HPF (0-5) Urine Squamous Epithelial Cells Few /hpf (<5) Urine Bacteria Few /hpf (None Seen) H Urine Yeast (Budding) Many /hpf (None Seen) Urine Glucose 4+ mg/dL (Normal) H Urine Test Negative (Negative) Assessment/Plan Assessment/Plan 44-year-old female with a known history of type 1 diabetes is here for high blood sugar 1. Hyperglycemia in the setting of type 1 diabetes mellitus insulin-dependent 2. Dyslipidemia 3. Type 1 diabetes mellitus 4. Noncompliance/nonadherence to insulin because of insurance issues -continue insulin Lantus, statin, clinical social work therapist consultation. 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
[2025-02-06 00:56] VITALS: BP 108/75; PULSE 74; RESP 20; TEMP 98.1; O2SAT 95
[2025-02-06 05:00] VITALS: BP 113/75; PULSE 76; RESP 20; TEMP 98.1; O2SAT 96
[2025-02-06 09:00] VITALS: BP 128/89; PULSE 91; RESP 18; TEMP 98; O2SAT 97
[2025-02-06 13:00] VITALS: BP 135/78; PULSE 90; RESP 16; TEMP 98.5; O2SAT 97
[2025-02-06 14:21] VITALS: PULSE 81
[2025-02-06] MEDS ORDERED: INSU100I2 SC (15:53)
--- NOTE | 2025-02-06 15:59 | DVHDS2 ---
Discharge Summary Date of Admission Feb 03, 2025 at 15:15 Date of Discharge: Feb 06, 2025 Labs/Diagnostic Data: Laboratory Results Test 02/06/25 11:46 02/04/25 05:08 02/03/25 13:54 02/03/25 13:53 POC Glucose 310 mg/dl (70-106) White Blood Count 9.4 10^3/uL (4.4-10.8) Red Blood Count 4.72 10^6/uL (4.0-5.20) Hemoglobin 14.1 g/dL (12.2-16.2) Hematocrit 41.1 % (36.0-46.0) Mean Corpuscular Volume 86.9 fL (80.0-100.0) Mean Corpuscular Hemoglobin 29.9 pg (28.0-32.0) Mean Corpuscular Hemoglobin Concent 34.4 g/dL (32.0-36.0) Red Cell Distribution Width 13.0 % (11.8-14.3) Platelet Count 263 10^3/uL (140-450) Mean Platelet Volume 7.9 fL (6.9-10.8) Neutrophils (%) (Auto) 50.2 % (37.0-80.0) Lymphocytes (%) (Auto) 42.0 % (10.0-50.0) Monocytes (%) (Auto) 3.7 % (0.0-12.0) Eosinophils (%) (Auto) 3.3 % (0.0-7.0) Basophils (%) (Auto) 0.8 % (0.0-2.0) Neutrophils # (Auto) 4.7 10 ^3/uL (1.6-8.6) Lymphocytes # (Auto) 3.9 10 ^3/uL (0.4-5.4) Monocytes # (Auto) 0.3 10 ^3/uL (0-1.3) Eosinophils # (Auto) 0.3 10 ^3/uL (0-0.8) Basophils # (Auto) 0.1 10 ^3/uL (0-0.2) Nucleated Red Blood Cells 0.2 % Sodium Level 139 mmol/L (136-145) Potassium Level 4.0 mmol/L (3.5-5.1) Chloride Level 105 mmol/L (98-107) Carbon Dioxide Level 25 mmol/L (20-31) Anion Gap 9 (5-15) Blood Urea Nitrogen 10 mg/dL (9-23) Creatinine 0.66 mg/dL (0.550-1.02) Glomerular Filtration Rate Calc 110 mL/min (>90) BUN/Creatinine Ratio 15.2 (10.0-20.0) Serum Glucose 238 mg/dL (74-106) Calcium Level 9.1 mg/dL (8.7-10.4) Magnesium Level 1.7 mg/dL (1.6-2.6) Troponin I High Sensitivity < 3 ng/L (</=34) Triglycerides Level 261 mg/dL (< 150) Cholesterol Level 212 mg/dL (< 200) LDL Cholesterol 146 mg/dL (< 100) HDL Cholesterol 42 mg/dL (40-59) Urine Test Negative (Negative) Urine Color Light-yellow (Yellow) Urine Clarity Clear (Clear) Urine pH 5.5 (5.0-9.0) Urine Specific [place] 1.027 (1.001-1.035) Urine Protein Negative (Negative) Urine Ketones Negative (Negative) Urine Blood Negative /uL (Negative) Urine Nitrite Negative (Negative) Urine Bilirubin Negative (Negative) Urine Urobilinogen Normal mg/dL (Negative) Urine Leukocyte Esterase Negative /uL (Negative) Urine RBC 4 /hpf (0 - 4) Urine Microscopic WBC 2 /HPF (0-5) Urine Squamous Epithelial Cells Few /hpf (<5) Urine Bacteria Few /hpf (None Seen) Urine Yeast (Budding) Many /hpf (None Seen) Urine Glucose 4+ mg/dL (Normal) Urine Opiates Screen Neg (NEGATIVE) Urine Fentanyl Screen Neg (NEGATIVE) Urine Barbiturates Screen Neg (NEGATIVE) Urine Phencyclidine Screen Neg (NEGATIVE) Urine Amphetamines Screen Neg (NEGATIVE) Urine Benzodiazepines Screen Neg (NEGATIVE) Urine Cocaine Screen Neg (NEGATIVE) Urine Cannabinoids Screen Neg (NEGATIVE) Test 02/03/25 12:57 D-Dimer, Quantitative 0.23 mg/L FEU (0.0-0.49) Hemoglobin A1c 11.5 % A1C (<5.7) Creatine Kinase 48 U/L (34-145) Beta-Hydroxybutyric Acid 0.148 mmol/L (< 0.4) Thyroid Stimulating Hormone (TSH) 0.70 uIU/mL (0.55-4.78) Free Thyroxine (T4) Calculated 1.25 ng/dL (0.89-1.76) Other Laboratory Tests 02/04/25 05:08 Brief Hx & Hospital Course: 44-year-old female with a known history of type 1 diabetes is here for high blood sugar. Patient was found to have hyperglycemia in the setting of type 1 diabetes mellitus insulin-dependent. Patient also has a known history of dyslipidemia. Patient's has a noncompliance and nonadherence to insulin because of insurance issues. Patient is being discharged under stable condition with a close follow up as an outpatient with the PCP as well as endocrinology. Condition at Discharge: Stable Final Diagnosis/Problems List 44-year-old female with a known history of type 1 diabetes is here for high blood sugar 1. Hyperglycemia in the setting of type 1 diabetes mellitus insulin-dependent 2. Dyslipidemia 3. Type 1 diabetes mellitus 4. Noncompliance/nonadherence to insulin because of insurance issues Discharge Disposition: Home SNF Discharge Will this Physician continue t: No Discharge Instruct/Medications Diet: Cardiac 2g Na,low cholest Diet comment: 1800 ADA diet. Activity: No Restrictions, As Tolerated Follow Up/Referral: Please follow up with the PCP and endocrinology as scheduled. Medications: Humalog insulin sliding scale as provided. New Medications: Insulin Lispro (Human) (Humalog) 100 Unit/Ml Inj 100 UNIT SC ACHS for 30 Days, #30 INJ Low-dose insulin sliding scale Continued Medications: Docusate Sodium (Colace) 100 Mg Cap 1 CAP PO BID, #30 CAP Folic Acid (Folic Acid) 1 Mg Tab 1 MG PO DAILY for 30 Days, MG Insulin Regular (Human) (Humulin R) 100 Unit/Ml Inj 8 UNIT IV, INJ Vit W/ Ferrous Fumara ( One Daily) Daily Tab 1 TAB PO DAILY, #90 TAB 3 Refills Discontinued Medications: Insulin Detemir (Levemir) Inj 20 SC AC, INJ Insulin Detemir (Levemir) Inj 26 SC HS, INJ Insulin Lispro (Human) (Humalog) 100 Unit/Ml Inj 100 UNIT SC, INJ Scheduled Docusate Sodium (Colace), 1 CAP PO BID, (Reported) Folic Acid (Folic Acid), 1 MG PO DAILY, (Reported) Insulin Lispro (Human) (Humalog), 100 UNIT SC ACHS Vit W/ Ferrous Fumara ( One Daily), 1 TAB PO DAILY, (Reported) Miscellaneous Medications Insulin Regular (Human) (Humulin R), 8 UNIT IV, (Reported) Discharge Statement: "Patient was advised to return to the ER or call 911 if any headaches, dizziness, shortness of breath, chest pain, abdominal pain, bleeding, fevers, or worsening of medical condition. Patient was counseled about treatment plan, medications, possible side effects, patientverbalized understanding. All questions were answered to the best of my ability. This discharge took greater then 30 minutes in planning, reviewing documentation, counseling the patient, and discussing with other team members." ASSESSMENT ASSESSMENT Assessment 44-year-old female with a known history of type 1 diabetes is here for high blood sugar 1. Hyperglycemia in the setting of type 1 diabetes mellitus insulin-dependent 2. Dyslipidemia 3. Type 1 diabetes mellitus 4. Noncompliance/nonadherence to insulin because of insurance issues Date of Service: Feb 06, 2025 Billing Provider: ALONSO BOSTON MD Common Visit Codes: [id number] DISCH DAY >30min ALONSO BOSTON MD Feb 06, 2025 15:59
[2025-02-06 17:00] VITALS: BP 123/71; PULSE 84; RESP 18; TEMP 98.6; O2SAT 96
== END 2025-02-06 18:47 | disposition home or self-care (01) | DRG 203 ==
LOC: ER 12:19 → OVERFLOW 15:15 → TELE-WESTW 15:20
PROVIDERS: ADMIT Internal Medicine; ATTEND Internal Medicine
DX: M94.0 Chondrocostal junction syndrome [Tietze] (principal); Z90.6 Acquired absence of other parts of urinary tract; E10.65 Type 1 diabetes mellitus with hyperglycemia; E66.9 Obesity, unspecified; E78.5 Hyperlipidemia, unspecified; Z79.4 Long term (current) use of insulin; Z91.148 Patient's other noncompliance with medication regimen for other reason; Z90.49 Acquired absence of other specified parts of digestive tract; Z88.6 Allergy status to analgesic agent; Z88.8 Allergy status to other drugs, medicaments and biological substances; Z91.014 Allergy to mammalian meats; Z83.3 Family history of diabetes mellitus; Z98.891 History of uterine scar from previous surgery; Z68.32 Body mass index [BMI] 32.0-32.9, adult
CPT/HCPCS: 36415; 71045; 80048; 80061; 80307; 81001; 81025; 82010; 82550; 82962; 83036; 83735; 84439; 84443; 84484; 85025; 85379; 93005; 93306; 96361; 96374; G0378; J1815